=== PATIENT | male | born 1975 | race African-American/Black ===

== ENCOUNTER 2016-09-30 00:59 | Emergency (ER) | payer OTHER ==
[~2016-09-30 00:59] MED LIST: IBUPROFEN400 MG PO; IBUPROFEN800 MG PO; LORTAB 10-5001 EACH PO; VICODIN PO; VOLTAREN75 MG PO
== END 2016-09-30 02:00 | disposition home or self-care (01) ==
LOC: CED 00:59
DX: K40.90 Unilateral inguinal hernia, without obstruction or gangrene, not specified as recurrent (principal); F17.210 Nicotine dependence, cigarettes, uncomplicated; J45.909 Unspecified asthma, uncomplicated; Z98.890 Other specified postprocedural states
CPT/HCPCS: 99283

== ENCOUNTER 2016-10-16 11:35 | Emergency (ER) | payer SELFPAY ==
--- NOTE | ~2016-10-16 | CR229 ---
[facility] A Service of [facility] & [facility] / [facility] RADIOLOGY TEXT RESULTS PATIENT: CLIFFORD GARZA LOCATION: [facility] : 79 UNIT #: [id number] AGE: [address]: Marcelino French MD SEX: M ORDER DR: [id number] [facility] [address] [place], [place] [address] [id number] E MR#: [id number] Acc #: [id number] NAME: CLIFFORD GARZA : 1975 SEX: M STUDY DATE/TIME: 10/16/2016 11:48 UNIT: [facility] ROOM: STUDY DESCRIPTION: CR Shoulder Min 2 View Lt Attending Physician: Marcelino French M.D. Ordering Physician: Ed Pedro Ochoa M.D. Primary Care Physician: Primary Care Physician No MEDICAL IMAGING REPORT This report is preliminary unless electronic signature is present EXAM Left shoulder 3 views, 10/16/2016 CLINICAL HISTORY Pain, woke up with left shoulder pain. No known injury. FINDINGS There is anteroinferior glenohumeral dislocation without apparent fracture. Dictated by... Chris Ware M.D. THIS IS AN ELECTRONICALLY VERIFIED REPORT Chris Ware M.D. at 10/17/2016 10:54 AM PATSY/edda TD: 10/16/2016 21:41 JOB #: [id number] MEDICAL IMAGING REPORT Page 1 of 1 COPY
--- NOTE | ~2016-10-16 | CR226 ---
[facility] A Service of [facility] & [facility] RADIOLOGY TEXT RESULTS PATIENT: CLIFFORD GARZA LOCATION: [facility] : 79 UNIT #: [id number] AGE: [address]: Marcelino French MD SEX: M ORDER DR: [id number] [facility] [address] [place], [place] [address] [id number] E MR#: [id number] Acc #: [id number] NAME: CLIFFORD GARZA : 1975 SEX: M STUDY DATE/TIME: 10/16/2016 13:20 UNIT: [facility] ROOM: STUDY DESCRIPTION: CR Shoulder 1 View Lt Attending Physician: Marcelino French M.D. Ordering Physician: Marcelino French M.D. Primary Care Physician: Primary Care Physician No MEDICAL IMAGING REPORT This report is preliminary unless electronic signature is present EXAM Left shoulder 1 view HISTORY Shoulder dislocation today and reduction. FINDINGS Single view left shoulder demonstrates interval reduction of the shoulder dislocation compared to earlier today. The glenohumeral alignment is now satisfactory. There is an impaction fracture along the superolateral margin of the humeral head indicating a Hill-Sachs lesion with approximately 5 mm depression of the superolateral humeral head cortex. Acromioclavicular joint alignment is also satisfactory. Dictated by... Jim Fernandes M.D. THIS IS AN ELECTRONICALLY VERIFIED REPORT Jim Fernandes M.D. at 10/17/2016 5:33 PM ANGELO/edda TD: 10/17/2016 00:04 JOB #: [id number] MEDICAL IMAGING REPORT Page 1 of 1 COPY
[2016-10-16 13:37] LABS: BUN/CREATININE RATIO 13.33; CALCIUM SERUM 8.7 mg/dL (8.4-10.2); CREATININE SERUM 0.9 mg/dL (0.6-1.4); GLOM FILT RATE Estimated 125.1 mL/min (>60); POTASSIUM 4.4 mmol/L (3.5-5.1)
== END 2016-10-16 14:47 | disposition home or self-care (01) ==
LOC: CED 11:35
PROVIDERS: Emergency Medicine
DX: S42.292A Other displaced fracture of upper end of left humerus, initial encounter for closed fracture (principal); S43.005A Unspecified dislocation of left shoulder joint, initial encounter; W01.0XXA Fall on same level from slipping, tripping and stumbling without subsequent striking against object, initial encounter; Y92.9 Unspecified place or not applicable
CPT/HCPCS: 23650; 73020; 73030; 80048; 96374; 96375; 99283; J1170; J2250; J2405